=== PATIENT | female | born 1970 | race Caucasian/White ===

== ENCOUNTER 2022-05-09 08:30 | Day surgery (SDC) | payer BC ==
[~2022-05-09 08:30] MED LIST: Acetaminophen 325 MG Tab PO SCH; EPINEPHrine 1 MG/ML SDV ONE; Lactated Ringers 1,000 ML IV SCH; Lidocaine 1%/Sod Bicarbonate in NS 8.4% 1 ML Syringe IDERM PRN; Pregabalin 25 MG Cap PO SCH; Ropivacaine 0.5% 5 MG/ML 30 ML SDV ONE; Sodium Chloride 0.9% 10 ML Syringe FLUSH PRN; Sodium Chloride 0.9% 10 ML Syringe FLUSH SCH; oxyCODONE ER 10 MG TAB.ER PO SCH
[2022-05-09] MEDS ORDERED: Ondansetron 4 MG/2 ML SDV ONE (08:32)
[2022-05-09] MEDS ORDERED: Dexmedetomidine 200 MCG/2 ML SDV ONE (08:32)
[2022-05-09] MEDS ORDERED: Propofol 200 MG/20 ML SDV ONE ×4 (08:41→11:31)
[2022-05-09] MEDS ORDERED: Ketamine 500 mg/10 ML MDV ONE (08:42)
[2022-05-09] MEDS ORDERED: Midazolam 1 MG/ML 2 ML SDV ONE (08:46)
[2022-05-09] MEDS ORDERED: fentaNYL 100 MCG/2 ML SDV ONE ×2 (08:47→11:47)
[2022-05-09] MEDS ORDERED: ceFAZolin 2 GM Vial ONE (08:49)
[2022-05-09] MEDS ORDERED: fentaNYL 100 MCG/2 ML SDV IVPUSH PRN (09:27)
[2022-05-09] MEDS ORDERED: HYDROmorphone 0.5 MG/0.5 ML Syringe IVPUSH PRN (09:27)
[2022-05-09] MEDS ORDERED: Ondansetron 4 MG/2 ML SDV IVPUSH PRN (09:27)
[2022-05-09] MEDS: Tranexamic Acid 1,000 MG/10 ML Vial ONE ×2 (11:12→11:36)
[2022-05-09] MEDS: Morphine 8 MG, EPINEPHrine 0.3 MG, Cefuroxime 750 MG, Ketorolac 30 MG, Sodium Chloride ... PRN ×10 (11:12→11:29)
[2022-05-09] MEDS: Vancomycin 1 GM SDV ONE ×2 (11:12→11:36)
[2022-05-09] MEDS ORDERED: Phenylephrine HCl In 0.9% NaCl 1 MG/10 ML Vial ONE (11:27)
[2022-05-09] MEDS ORDERED: Ketorolac 30 MG/ML SDV ONE (11:28)
[2022-05-09] MEDS ORDERED: Lactated Ringers 1,000 ML ONE (11:44)
[2022-05-09] MEDS ORDERED: oxyCODONE 5 MG Tab PO PRN (13:10)
== END 2022-05-09 14:25 | disposition home or self-care (01) ==
LOC: JD.SDS 08:30
PROVIDERS: ATTEND Orthopaedic Surgery
DX: M17.11 Unilateral primary osteoarthritis, right knee (principal); I10 Essential (primary) hypertension; E78.00 Pure hypercholesterolemia, unspecified; Z79.899 Other long term (current) drug therapy; Z87.891 Personal history of nicotine dependence; Z98.890 Other specified postprocedural states; Z79.82 Long term (current) use of aspirin
CPT/HCPCS: 0055T; 27447; 73560; 97110; 97116; 97161; A9270; C1713; C1776; J0171; J0690; J0697; J1885; J2250; J2270; J2405; J2704; J2795; J3010; J3370; J3490; J7120; 01402; 64450; 76942